=== PATIENT | male | born 1960 | race African-American/Black ===

== ENCOUNTER 2019-12-06 08:50 | Day surgery (SDC) | payer MEDICARE, OTHER ==
[2019-12-02 15:25] VITALS: BMI 21.2
[2019-12-06] MEDS ORDERED: PROPOFOL 20 ML ONE ×3 (11:22→12:55)
[2019-12-06] MEDS ORDERED: ONDANSETRON 4 MG/2 ML VIAL IVPUSH PRN (11:35)
[2019-12-06] MEDS ORDERED: oxyCODONE HCL 5 MG TABLET PO PRN (11:35)
[2019-12-06] MEDS ORDERED: LACTATED RINGERS SOLUTION 1,000 ML IV SCH (11:45)
--- NOTE | 2019-12-06 13:38 | OP ---
Operative Note - Note: Operative Date: 12/06/19 Pre-Operative Diagnosis: Left renal stone Operation: Left ESWL Findings: 5 mm mid pole left renal tone Post-Operative Diagnosis: Same as Pre-op Surgeon: Morgan Dubon Anesthesia: Fractional Estimated Blood Loss (mls): 0 Drains, Volume Out (mls): 0 Operative Report Dictated: Yes
[2019-12-06 15:07] VITALS: TEMP 98
[2019-12-06 15:24] VITALS: BP 123/79; PULSE 60
--- NOTE | 2019-12-07 13:50 | OP ---
DATE OF OPERATION: 12/06/2019 PREOPERATIVE DIAGNOSIS: Left renal stone. POSTOPERATIVE DIAGNOSIS: Left renal stone. PROCEDURE: Left extracorporeal shock-wave lithotripsy. ATTENDING: Roxie Huang MD ANESTHESIA: Fractional. DESCRIPTION OF PROCEDURE: Patient was brought in the operating room. Placed in a supine position on the operating room table. Ultrasonography and fluoroscopy were performed. A 5-mm left mid pole stone was identified. Anesthesia and preoperative antibiotics were then administered. Shock-wave lithotripsy was then performed; 2500 impulses at 17 joules of power were administered to the stone. No complications were noted. DISPOSITION: The patient went to the recovery room. ROXIE HUANG M.D. /[id number]
== END 2019-12-06 15:53 | disposition home or self-care (01) ==
LOC: JASU-SURG 08:50
PROVIDERS: ATTEND Urology
PROC: 0TF4XZZ Fragmentation in Left Kidney Pelvis, External Approach (ICD-10-PCS; principal; 2019-12-06 11:00)
DX: N20.0 Calculus of kidney (principal)
CPT/HCPCS: 94760